=== PATIENT | female | born 1970 | race Caucasian/White ===

== ENCOUNTER → 2019-01-06 | Outpatient (CLI) | payer OTHER | LOC: M.RAD 08:20 | DX: Z12.31 Encounter for screening mammogram for malignant neoplasm of breast (principal) ==

== ENCOUNTER 2019-06-28 12:52 | Observation (INO) | payer OTHER ==
[~2019-06-28] VITALS: Ht 154.9 cm; Wt 124.7 kg
[2019-06-28 13:30] VITALS: BP 187/108
[2019-06-28] MEDS ORDERED: CHILDREN'S ZYRT10 M1 PO (13:35)
[2019-06-28] MEDS ORDERED: COZAAR 25 MG TA25 M1 PO (13:35)
[2019-06-28 14:03] LABS: URINE BLOOD 3+ (Negative); URINE CLARITY TURBID; URINE COLOR BROWN; URINE GLUCOSE-RANDOM NEGATIVE (Negative); URINE KETONES TRACE (Negative); URINE PROTEIN 3+ (Negative); URINE SPECIFIC GRAVITY >= 1.030 (1.005-1.030)
[2019-06-28 14:04] LABS: URINE BILIRUBIN 2+ (Negative); URINE LEUKOCYTES-REFLEX 2+ (Negative); URINE NITRITE-REFLEX POSITIVE (Negative)
[2019-06-28 14:08] LABS: ICTOTEST (BILI CONFIRMATORY) Negative (Negative)
[2019-06-28 14:14] LABS: BACTERIA-REFLEX >30 Many /HPF (None Seen); CALCIUM OXALATE 0-3 Few /LPF (None Seen); CASTS None Seen /LPF (None Seen); MUCUS 4-6 Moderate strn/LPF (None Seen); SQUAMOUS 4-10 Moderate /LPF (0-3); URINE RBC >20 Many /HPF (0-2); URINE WBC-REFLEX 6-15 Few /HPF (0-5)
[2019-06-28 15:03] LABS: HEMATOCRIT 41.9 % (37.0-47.0); HEMOGLOBIN 14.2 gm/dL (12.0-15.0); MCH 28.9 pg (26.0-34.0); MCHC 33.9 g/dL (28.0-37.0); MCV 85.1 fL (80.0-100.0); MPV 7.3 fl. (7.2-11.1); NUCLEATED RBCS 0 /100WBC; PLATELET COUNT* 386 thou/uL (150-400); RBC 4.93 mil/uL (4.20-5.00); RDW-CV 14.7 % (10.5-14.5); WBC 15.9 thou/uL (4.0-11.0)
[2019-06-28 15:38] LABS: ABSOLUTE LYMPHOCYTES 1.6 thou/uL (0.8-5.3); ABSOLUTE MONOCYTES 1.3 thou/uL (0.0-1.2); ANISOCYTOSIS 1+; PLATELET ESTIMATE ADEQUATE
[2019-06-28 15:46] LABS: CALCIUM 8.5 mg/dL (8.5-10.1); POTASSIUM 4.1 mmol/L (3.5-5.1)
[2019-06-28 15:51] LABS: ALBUMIN 3.7 g/dL (3.4-5.0); TOTAL PROTEIN 8.5 g/dL (6.4-8.2)
[2019-06-28 19:56] VITALS: BP 134/74
[2019-06-28 20:34] VITALS: BP 134/74
[2019-06-28 20:45] VITALS: BP 144/86
[2019-06-29 06:21] LABS: ABSOLUTE BASOPHILS 0.1 thou/uL (0.0-0.2); ABSOLUTE EOSINOPHILS 0.4 thou/uL (0.0-0.7); ABSOLUTE LYMPHOCYTES 2.1 thou/uL (0.8-5.3); ABSOLUTE MONOCYTES 0.8 thou/uL (0.0-1.2); ABSOLUTE NEUTROPHILS 8.7 thou/uL (1.6-8.1); BASOPHILS 0.7 %; EOSINOPHILS 2.9 %; HEMATOCRIT 37.3 % (37.0-47.0); HEMOGLOBIN 12.6 gm/dL (12.0-15.0); LYMPHOCYTES 17.7 %; MCH 28.8 pg (26.0-34.0); MCHC 33.7 g/dL (28.0-37.0); MCV 85.4 fL (80.0-100.0); MONOCYTES 6.9 %; MPV 7.1 fl. (7.2-11.1); NUCLEATED RBCS 0 /100WBC; PLATELET COUNT* 339 thou/uL (150-400); POLYS 71.8 %; RBC 4.36 mil/uL (4.20-5.00); RDW-CV 14.4 % (10.5-14.5); WBC 12.1 thou/uL (4.0-11.0)
[2019-06-29 06:28] LABS: CALCIUM 7.7 mg/dL (8.5-10.1); CREATININE 0.9 mg/dL (0.6-1.3); POTASSIUM 3.9 mmol/L (3.5-5.1)
--- NOTE | 2019-06-29 06:39 | NUR ---
PATIENT ARRIVED ON FLOOR FROM THE ER AT ABOUT 2039. PATIENT ADMISSION HISTORY AND ASSESSMENT WAS COMPLETED CHARTED. IV FLUIDS WERE STARTED AT 100 ML/HR. URINE HAS BEEN STRAINED WITH NO STONE. PATIENT HAS HAD NO COMPLAINTS OF PAIN OR NAUSEA. WILL CONTINUE TO MONITOR.
[2019-06-29 07:52] VITALS: BP 136/78
[2019-06-29] MEDS ORDERED: SINGULAIR 10 MG10 M1 PO (14:02)
[2019-06-29 14:07] VITALS: BP 136/78
[2019-06-29] MEDS ORDERED: CIPRO500 M1 PO (15:25)
[2019-06-29] MEDS ORDERED: FLOMAX0.4 MG PO (15:25)
[2019-06-29] MEDS ORDERED: NORCO 5-325 TA1 EAC1 PO (15:25)
[2019-06-29 15:33] VITALS: BP 136/78
[2019-06-29 15:46] VITALS: BP 136/78
--- NOTE | 2019-06-29 15:47 | NUR ---
ASSESSMENT COMPLETE. PT DC HOME WITH PRESCRIPTIONS CIPRO, FLOMAX, AND NORCO. PT WILL FOLLOW UP WITH UROLOGY IN 1 WEEK. ALL BELONGINGS SENT WITH PATIENT.
== END 2019-06-29 15:45 | disposition home or self-care (01) ==
LOC: M.ERS 12:52 → M.TBA-ER 15:56 → M.3W 15:56
PROVIDERS: Emergency Medicine Emergency Medical Services; Physician Assistant; ADMIT Family Medicine
DX: N20.2 Calculus of kidney with calculus of ureter (principal); A41.9 Sepsis, unspecified organism; N39.0 Urinary tract infection, site not specified; I10 Essential (primary) hypertension; K76.0 Fatty (change of) liver, not elsewhere classified; E66.9 Obesity, unspecified

== ENCOUNTER → 2020-02-06 | Outpatient (CLI) | payer OTHER ==
[~2020-02-06] MED LIST: CHILDREN'S ZYRT10 M1 PO; CIPRO500 M1 PO; COZAAR 25 MG TA25 M1 PO; FLOMAX0.4 MG PO; NORCO 5-325 TA1 EAC1 PO; SINGULAIR 10 MG10 M1 PO
== END ==
LOC: M.RAD 02-03 10:45
PROVIDERS: ATTEND Family Medicine
DX: Z12.31 Encounter for screening mammogram for malignant neoplasm of breast (principal)